=== PATIENT | female | born 1940 | race Hispanic/Latino ===

== ENCOUNTER 2017-03-30 09:59 | Outpatient (CLI) | payer MEDICARE ==
[2017-03-30] MEDS ORDERED: NACL ONE (10:55)
[2017-03-30 10:56] LABS: Blood Urea Nitrogen 12 mg/dL (7-17)
--- NOTE | 2017-03-30 12:00 | Cat Scan Report ---
CT ORBITS WITH CONTRAST HISTORY: Diplopia. TECHNIQUE: Helical CT following IV contrast. Sagittal and coronal reformatted images. FINDINGS: No comparison. The bony orbital cavities are intact. No fracture or bony destruction. The globes, extraocular muscles, optic nerves and retro-orbital fat are within normal limits. There is no evidence for mass or inflammation. The visualized brain demonstrates age-appropriate volume loss but no acute intracranial process The visualized paranasal sinuses and mastoid air cells are clear. No abnormal enhancement is detected. IMPRESSION: Unremarkable CT orbits with contrast. No clear explanation for diplopia.
--- NOTE | 2017-03-30 12:04 | Cat Scan Report ---
CT OF THE ABDOMEN AND PELVIS WITHOUT CONTRAST HISTORY: Urinary tract infection. TECHNIQUE: Helical CT without contrast. Sagittal and coronal reformatted images. FINDINGS: No comparison. Both kidneys are normal size, contour and position. There is no evidence for nephrolithiasis, hydronephrosis or perinephric fluid. No obvious renal mass on noncontrast CT. A 3.7 cm exophytic simple cyst from the posterior, inferior right kidney is noted. The ureters are normal course and caliber. Normal bladder. The liver and spleen are normal size and contour. A 2.3 cm left hepatic lobe cyst is noted. No suspicious liver mass or parenchymal disease. There are at least 2 calcified gallstones measuring up to 1.4 cm. No biliary dilatation or inflammation. Normal pancreas, adrenal glands, uterus and adnexa. There are multiple diverticula in the descending and sigmoid colon. The remaining bowel loops and appendix are unremarkable given no oral contrast was administered. The aorta is normal caliber. Posterior lumbar fusion changes from L3-L5 are noted. There is approximate 1 cm anterolisthesis of L4 respect to L5 on the sagittal reconstructed images. There is no evidence for acute fracture or suspicious bony lesion. Osteopenia is noted. IMPRESSION: 3.7 cm exophytic cyst from the right kidney. Otherwise, unremarkable kidneys, ureters and bladder. Diverticulosis of the distal colon. Cholelithiasis. 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 Consider consultation with the patient's back surgeon.
== END 2017-03-30 10:00 | disposition home or self-care (01) ==
LOC: CT 09:59
PROVIDERS: ATTEND Urology
DX: N39.0 Urinary tract infection, site not specified (principal); N28.1 Cyst of kidney, acquired; K57.30 Diverticulosis of large intestine without perforation or abscess without bleeding; K80.20 Calculus of gallbladder without cholecystitis without obstruction; M47.896 Other spondylosis, lumbar region; M43.26 Fusion of spine, lumbar region; H53.2 Diplopia
CPT/HCPCS: 36415; 70481; 74176; 82565; 84520; Q9967